=== PATIENT | male | born 1960 | race Caucasian/White ===

== ENCOUNTER 2022-06-12 11:00 | Outpatient (RCR) | payer OTHER, SELFPAY ==
[2022-05-26 10:11] LABS: Basophils Percent Auto 1.4 % (0.0-3.0); Eosinophils Percent Auto 8.5 % (0.0-7.0); Hematocrit 37.2 % (37.0-53.0); Hemoglobin* 12.9 gm/dL (13.5-17.5); Immature Granulocytes Abs Auto 0.01 K/uL (0.00-0.30); Mean Corpuscular HGB Conc 35 gm/dL (32-36); Mean Corpuscular Hemoglobin 37 pg (26-34); Mean Corpuscular Volume 107 fL (80-100); Monocytes Percent Auto 10.7 % (0.0-11.0); Platelet Count* 169 K/uL (140-440); RDW Coefficient of Variation % 12.6 % (11.5-15.5); Red Blood Count 3.48 m/uL (4.30-5.90); White Blood Count* 2.81 K/uL (4.50-11.00)
[2022-05-26 10:18] LABS: Slide Review Reflex No
[2022-05-26 10:24] LABS: Albumin* 4.2 g/dL (3.3-5.0); Chloride* 104 mmol/L (96-114); Potassium* 4.6 mmol/L (3.6-5.1); Sodium* 135 mmol/L (135-149)
[2022-05-26 10:26] LABS: Est. Creatinine Clearance* 80.53; Estimated Glomerular Filt Rate 84.57
[2022-05-26 10:27] LABS: Alanine Aminotransferase* 33 U/L (4-50); Alkaline Phosphatase* 78 U/L (40-150); Aspartate Amino Transferase* 36 U/L (12-35); Bilirubin Total* 0.8 mg/dL (0.1-1.5); Blood Urea Nitrogen* 11 mg/dL (7-30); Carbon Dioxide* 24 mmol/L (20-32); Glucose* 107 mg/dL (60-115); Total Protein* 6.5 g/dL (6.0-8.3)
[2022-05-26 10:28] LABS: Calcium* 8.8 mg/dL (8.4-10.6)
[2022-05-26 10:57] LABS: Lactate Dehydrogenase* 732 U/L (313-618)
--- NOTE | 2022-05-26 12:03 | ONC.NURNOTE ---
Here for Q 3mth lab draw reports slight and gradual improvement in skin rash no other concerns or changes taking 400mg Gleevac/day
[2022-06-05 15:48] LABS: BCRABL1 Intl Scale (Percent) 0 %
[2022-06-12 11:12] LABS: Lactate Dehydrogenase* 451 U/L (313-618)
--- NOTE | 2022-06-12 13:03 | ONC.NURNOTE ---
LDH results noted and called to Peter as in the normal range results to be reviewed by Dr Maciel this week during clinic
== END 2022-06-18 23:59 | disposition home or self-care (01) ==
LOC: CCIC 11:00
PROVIDERS: PCP Family Medicine; Visit Provider Internal Medicine Hematology & Oncology
DX: C92.10 Chronic myeloid leukemia, BCR/ABL-positive, not having achieved remission (principal)
CPT/HCPCS: 36415; 80053; 81206; 83615; 85025

== ENCOUNTER 2023-02-23 10:00 | Outpatient (RCR) | payer OTHER, SELFPAY ==
[2022-08-30 14:11] LABS: Basophils Absolute Auto 0.02 K/uL (0.00-0.30); Basophils Percent Auto 0.4 % (0.0-3.0); Eosinophils Absolute Auto 0.21 K/uL (0.00-0.50); Eosinophils Percent Auto 4.4 % (0.0-7.0); Hematocrit 36.7 % (37.0-53.0); Hemoglobin* 12.8 gm/dL (13.5-17.5); Lymphocytes Percent Auto 18.4 % (20-44); Mean Corpuscular HGB Conc 35 gm/dL (32-36); Mean Corpuscular Hemoglobin 38 pg (26-34); Mean Corpuscular Volume 108 fL (80-100); Monocytes Percent Auto 10.4 % (0.0-11.0); Neutrophils Absolute Auto 3.18 K/uL (1.7-7.0); Neutrophils Percent Auto 66.4 % (42.0-72.0); Platelet Count* 161 K/uL (140-440); RDW Coefficient of Variation % 12.7 % (11.5-15.5); Red Blood Count 3.39 m/uL (4.30-5.90); White Blood Count* 4.79 K/uL (4.50-11.00)
[2022-08-30 14:16] LABS: Slide Review Reflex No
[2022-08-30 14:27] LABS: Albumin* 4.5 g/dL (3.3-5.0); Chloride* 101 mmol/L (96-114); Sodium* 134 mmol/L (135-149)
[2022-08-30 14:28] LABS: Potassium* 4.5 mmol/L (3.6-5.1)
[2022-08-30 14:30] LABS: Alkaline Phosphatase* 80 U/L (40-150); Aspartate Amino Transferase* 40 U/L (12-35); Bilirubin Total* 1.2 mg/dL (0.1-1.5); Blood Urea Nitrogen* 14 mg/dL (7-30); Carbon Dioxide* 25 mmol/L (20-32); Creatinine* 1.3 mg/dL (0.5-1.5); Estimated Glomerular Filt Rate 62 ml/min; Lactate Dehydrogenase* 506 U/L (313-618); Total Protein* 7.2 g/dL (6.0-8.3)
[2022-08-30 14:31] LABS: Alanine Aminotransferase* 34 U/L (4-50); Calcium* 9.8 mg/dL (8.4-10.6); Glucose* 97 mg/dL (60-115)
--- NOTE | 2022-09-06 10:31 | ONC.NURNOTE ---
All labs called to Peter BCR/ABL noted at 0.00 reviewed next appt schedule- [place] leaving for [place] 11[place] agreed to get next lab and provider appt prior to leaving which will be lab at 2 mths instead of 3 mths
[2022-10-30 11:15] LABS: Basophils Percent Auto 0.8 % (0.0-3.0); Eosinophils Percent Auto 5.2 % (0.0-7.0); Hematocrit 37.8 % (37.0-53.0); Immature Granulocytes Pct Auto 0.3 %; Lymphocytes Percent Auto 25.2 % (20-44); Mean Corpuscular HGB Conc 34 gm/dL (32-36); Mean Corpuscular Hemoglobin 37 pg (26-34); Mean Corpuscular Volume 107 fL (80-100); Monocytes Percent Auto 12.9 % (0.0-11.0); Neutrophils Percent Auto 55.6 % (42.0-72.0); Platelet Count* 146 K/uL (140-440); RDW Coefficient of Variation % 12.6 % (11.5-15.5); Red Blood Count 3.52 m/uL (4.30-5.90); White Blood Count* 3.81 K/uL (4.50-11.00)
[2022-10-30 11:16] LABS: Slide Review Reflex No
[2022-10-30 11:30] LABS: Albumin* 4.5 g/dL (3.3-5.0); Chloride* 104 mmol/L (96-114); Potassium* 4.6 mmol/L (3.6-5.1); Sodium* 138 mmol/L (135-149)
[2022-10-30 11:32] LABS: Bilirubin Total* 0.7 mg/dL (0.1-1.5); Creatinine* 1.1 mg/dL (0.5-1.5); Estimated Glomerular Filt Rate 75 ml/min
[2022-10-30 11:33] LABS: Alanine Aminotransferase* 27 U/L (4-50); Alkaline Phosphatase* 66 U/L (40-150); Aspartate Amino Transferase* 29 U/L (12-35); Blood Urea Nitrogen* 13 mg/dL (7-30); Calcium* 9.3 mg/dL (8.4-10.6); Carbon Dioxide* 28 mmol/L (20-32); Glucose* 101 mg/dL (60-115)
[2022-11-16 12:31] LABS: QuantBCR-ABL Major p210 Source Not Detected
[2023-02-23 10:22] LABS: Basophils Percent Auto 0.7 % (0.0-3.0); Eosinophils Percent Auto 6.7 % (0.0-7.0); Hematocrit 36.8 % (37.0-53.0); Hemoglobin* 12.9 gm/dL (13.5-17.5); Lymphocytes Percent Auto 21.6 % (20-44); Mean Corpuscular HGB Conc 35 gm/dL (32-36); Mean Corpuscular Hemoglobin 37 pg (26-34); Mean Corpuscular Volume 106 fL (80-100); Monocytes Percent Auto 13.7 % (0.0-11.0); Neutrophils Percent Auto 57.3 % (42.0-72.0); Platelet Count* 152 K/uL (140-440); Red Blood Count 3.46 m/uL (4.30-5.90); Slide Review Reflex No; White Blood Count* 4.17 K/uL (4.50-11.00)
[2023-02-23 10:43] LABS: Albumin* 4.2 g/dL (3.3-5.0); Chloride* 101 mmol/L (96-114); Potassium* 4.8 mmol/L (3.6-5.1); Sodium* 131 mmol/L (135-149)
[2023-02-23 10:45] LABS: Creatinine* 0.9 mg/dL (0.5-1.5); Estimated Glomerular Filt Rate 96 ml/min
[2023-02-23 10:46] LABS: Alanine Aminotransferase* 40 U/L (4-50); Alkaline Phosphatase* 61 U/L (40-150); Aspartate Amino Transferase* 39 U/L (12-35); Bilirubin Total* 0.7 mg/dL (0.1-1.5); Blood Urea Nitrogen* 13 mg/dL (7-30); Calcium* 9.1 mg/dL (8.4-10.6); Carbon Dioxide* 27 mmol/L (20-32); Glucose* 107 mg/dL (60-115); Lactate Dehydrogenase* 193 U/L (120-246); Total Protein* 6.9 g/dL (6.0-8.3)
--- NOTE | 2023-02-23 14:34 | ONC.NURNOTE ---
Labs noted and called to Peter Sodium noted- messagel left on voice mail with instructions to add salt to his diet now BCR pending next lab/provider appts needed for 3 mths
[2023-02-27 17:40] LABS: QuantBCR-ABL Major p210 Source Not Provided
== END 2023-02-26 23:59 | disposition home or self-care (01) ==
LOC: CCIC 10:00
PROVIDERS: PCP Family Medicine; Referring Provider Family Medicine; Visit Provider Internal Medicine Hematology & Oncology
DX: C92.10 Chronic myeloid leukemia, BCR/ABL-positive, not having achieved remission (principal)
CPT/HCPCS: 36415; 80053; 81206; 83615; 85025; 99212; 99213

== ENCOUNTER 2023-11-09 09:00 | Outpatient (RCR) | payer OTHER, SELFPAY ==
--- NOTE | 2023-03-05 09:15 | ONC.NURNOTE ---
BCR/ABL results called to Peter as stable at 0% next appts in place Peter needs refill of Gleevac, with a 90 day supply discussed Na- Peter has been adding sodium to his diet, including salting foods and drinking V8 juice
--- NOTE | 2023-03-08 12:51 | ONC.NURNOTE ---
Dr Maciel requests that Peter follow up with PCP about hyponatremia this was communicated with Peter He needs to re-establish care with a PCP labs emailed to Peter at [email or web address]
--- NOTE | 2023-04-30 13:48 | ONC.NURNOTE ---
Patient left a message to change appointment with Dr. Maciel from May 31 to May 28 or . Called patient back and left a message that Dr. Maciel is on Vacation on May 28 and but there was a virtual appointment on June 05 at 1330. Left a message for patient to call us back if he wants us to make that change.
[2023-05-15 09:13] LABS: Basophils Percent Auto 0.8 % (0.0-3.0); Eosinophils Percent Auto 5.4 % (0.0-7.0); Hematocrit 37.7 % (37.0-53.0); Lymphocytes Percent Auto 18.9 % (20-44); Mean Corpuscular HGB Conc 35 gm/dL (32-36); Mean Corpuscular Hemoglobin 37 pg (26-34); Mean Corpuscular Volume 108 fL (80-100); Monocytes Percent Auto 12.8 % (0.0-11.0); Neutrophils Percent Auto 62.1 % (42.0-72.0); Platelet Count* 154 K/uL (140-440); RDW Coefficient of Variation % 12.6 % (11.5-15.5); White Blood Count* 3.91 K/uL (4.50-11.00)
[2023-05-15 09:14] LABS: Slide Review Reflex No
[2023-05-15 09:27] LABS: Albumin* 4.5 g/dL (3.3-5.0); Chloride* 99 mmol/L (96-114)
[2023-05-15 09:28] LABS: Potassium* 4.5 mmol/L (3.6-5.1); Sodium* 135 mmol/L (135-149)
[2023-05-15 09:30] LABS: Alkaline Phosphatase* 72 U/L (40-150); Aspartate Amino Transferase* 49 U/L (12-35); Bilirubin Total* 1.3 mg/dL (0.1-1.5); Blood Urea Nitrogen* 11 mg/dL (7-30); Carbon Dioxide* 28 mmol/L (20-32); Creatinine* 1.2 mg/dL (0.5-1.5); Estimated Glomerular Filt Rate 68 ml/min; Glucose* 109 mg/dL (60-115); Lactate Dehydrogenase* 216 U/L (120-246); Total Protein* 7.3 g/dL (6.0-8.3)
[2023-05-15 09:31] LABS: Alanine Aminotransferase* 40 U/L (4-50); Calcium* 9.7 mg/dL (8.4-10.6)
--- NOTE | 2023-05-17 10:55 | ONC.NURNOTE ---
Lab results called to Peter RTC in 2 weeks noted creat/AST/Bili
[2023-05-23 17:20] LABS: QuantBCR-ABL Major p210 Result Not Detected; QuantBCR-ABL Major p210 Source Whole Blood
[2023-08-15 09:31] LABS: Basophils Percent Auto 1.1 % (0.0-3.0); Eosinophils Percent Auto 6.9 % (0.0-7.0); Immature Granulocytes Pct Auto 0.3 %; Lymphocytes Percent Auto 22.9 % (20-44); Mean Corpuscular HGB Conc 35 gm/dL (32-36); Mean Corpuscular Hemoglobin 37 pg (26-34); Mean Corpuscular Volume 106 fL (80-100); Monocytes Percent Auto 13.6 % (0.0-11.0); Neutrophils Percent Auto 55.2 % (42.0-72.0); Platelet Count* 182 K/uL (140-440); RDW Coefficient of Variation % 12.7 % (11.5-15.5); Red Blood Count 3.48 m/uL (4.30-5.90); White Blood Count* 3.76 K/uL (4.50-11.00)
[2023-08-15 09:33] LABS: Slide Review Reflex No
[2023-08-15 09:48] LABS: Chloride* 103 mmol/L (96-114)
[2023-08-15 09:49] LABS: Albumin* 4.4 g/dL (3.3-5.0); Potassium* 4.8 mmol/L (3.6-5.1); Sodium* 137 mmol/L (135-149)
[2023-08-15 09:51] LABS: Estimated Glomerular Filt Rate 84 ml/min
[2023-08-15 09:52] LABS: Alanine Aminotransferase* 38 U/L (4-50); Alkaline Phosphatase* 60 U/L (40-150); Anion Gap 6 mEq/L (7-15); Aspartate Amino Transferase* 38 U/L (12-35); Bilirubin Total* 0.8 mg/dL (0.1-1.5); Blood Urea Nitrogen* 13 mg/dL (7-30); Calcium* 9.9 mg/dL (8.4-10.6); Carbon Dioxide* 28 mmol/L (20-32); Glucose* 110 mg/dL (60-115); Lactate Dehydrogenase* 200 U/L (120-246); Total Protein* 7.3 g/dL (6.0-8.3)
--- NOTE | 2023-10-29 15:52 | ONC.NURNOTE ---
Peter called stating he needs his rx for Imatinid 400mg called in to his pharmacy. Peter states he has a 2 week supply left. Note left for .
[2023-11-09 09:30] LABS: Hematocrit 38.1 % (37.0-53.0); Mean Corpuscular HGB Conc 34 gm/dL (32-36); Mean Corpuscular Hemoglobin 37 pg (26-34); Mean Corpuscular Volume 107 fL (80-100); Platelet Count* 159 K/uL (140-440); RDW Coefficient of Variation % 12.5 % (11.5-15.5); Red Blood Count 3.56 m/uL (4.30-5.90); White Blood Count* 3.46 K/uL (4.50-11.00)
[2023-11-09 09:44] LABS: Slide Review Reflex No
[2023-11-09 09:57] LABS: Albumin* 4.3 g/dL (3.3-5.0); Chloride* 101 mmol/L (96-114); Potassium* 4.3 mmol/L (3.6-5.1); Sodium* 134 mmol/L (135-149)
[2023-11-09 09:59] LABS: Anion Gap 8 mEq/L (7-15); Bilirubin Total* 0.9 mg/dL (0.1-1.5); Carbon Dioxide* 25 mmol/L (20-32); Estimated Glomerular Filt Rate 84 ml/min
[2023-11-09 10:00] LABS: Alanine Aminotransferase* 36 U/L (4-50); Alkaline Phosphatase* 63 U/L (40-150); Aspartate Amino Transferase* 29 U/L (12-35); Blood Urea Nitrogen* 13 mg/dL (7-30); Calcium* 9.1 mg/dL (8.4-10.6); Glucose* 131 mg/dL (60-115); Lactate Dehydrogenase* 189 U/L (120-246); Total Protein* 6.9 g/dL (6.0-8.3)
[2023-11-09 10:39] LABS: Monocytes Percent Auto 8.1 % (0.0-11.0); Neutrophils Percent Auto 58.6 % (42.0-72.0)
[2023-11-09 10:40] LABS: Basophils Percent Auto 0.9 % (0.0-3.0); Eosinophils Percent Auto 6.4 % (0.0-7.0)
[2023-11-14 13:43] LABS: QuantBCR-ABL Major p210 Result Not Detected; QuantBCR-ABL Major p210 Source Whole Blood
== END 2023-11-11 23:59 | disposition home or self-care (01) ==
LOC: CCIC 09:00
PROVIDERS: PCP Family Medicine; Referring Provider Family Medicine; Visit Provider Internal Medicine Hematology & Oncology
DX: C92.10 Chronic myeloid leukemia, BCR/ABL-positive, not having achieved remission (principal)
CPT/HCPCS: 36415; 80053; 81206; 83615; 85025; 99212; 99213; 99214

== ENCOUNTER 2024-08-19 09:00 | Outpatient (RCR) | payer MEDICARE, OTHER, SELFPAY ==
--- NOTE | 2023-11-15 16:36 | ONC.NURNOTE ---
results of BCR/ABL left on VM as 0.0
[2024-02-25 09:55] LABS: Basophils Percent Auto 0.5 % (0.0-3.0); Eosinophils Percent Auto 3.3 % (0.0-7.0); Hematocrit 36.4 % (37.0-53.0); Hemoglobin* 12.5 gm/dL (13.5-17.5); Lymphocytes Percent Auto 16.1 % (20-44); Mean Corpuscular HGB Conc 34 gm/dL (32-36); Mean Corpuscular Hemoglobin 37 pg (26-34); Mean Corpuscular Volume 108 fL (80-100); Neutrophils Percent Auto 69.1 % (42.0-72.0); Platelet Count* 145 K/uL (140-440); RDW Coefficient of Variation % 12.4 % (11.5-15.5); Red Blood Count 3.37 m/uL (4.30-5.90); White Blood Count* 3.91 K/uL (4.50-11.00)
[2024-02-25 09:58] LABS: Slide Review Reflex No
[2024-02-25 10:04] LABS: Albumin* 4.4 g/dL (3.3-5.0); Chloride* 100 mmol/L (96-114); Sodium* 134 mmol/L (135-149)
[2024-02-25 10:05] LABS: Potassium* 4.1 mmol/L (3.6-5.1)
[2024-02-25 10:07] LABS: Alanine Aminotransferase* 56 U/L (4-50); Alkaline Phosphatase* 59 U/L (40-150); Anion Gap 10 mEq/L (7-15); Aspartate Amino Transferase* 49 U/L (12-35); Bilirubin Total* 1.1 mg/dL (0.1-1.5); Blood Urea Nitrogen* 15 mg/dL (7-30); Carbon Dioxide* 24 mmol/L (20-32); Estimated Glomerular Filt Rate 84 ml/min; Glucose* 103 mg/dL (60-115)
[2024-02-25 10:08] LABS: Calcium* 9.6 mg/dL (8.4-10.6)
--- NOTE | 2024-03-05 10:41 | ONC.NURNOTE ---
Addendum entered by Khadra Patel RN 03/11/24 11:58: labs reviewed by Dr Maciel no changes in plan continue with Q 3 mth labs Original Note: Lab results called to Peter from Last week noted slight increase in AST/ALT- patient reports taking amoxicillin for sinus infection last week no other changes noted results to go to Dr Maciel when returns next week
[2024-05-13 10:08] LABS: Basophils Percent Auto 0.7 % (0.0-3.0); Eosinophils Percent Auto 4.4 % (0.0-7.0); Hematocrit 36.3 % (37.0-53.0); Hemoglobin* 12.3 gm/dL (13.5-17.5); Lymphocytes Percent Auto 24.9 % (20-44); Mean Corpuscular HGB Conc 34 gm/dL (32-36); Mean Corpuscular Hemoglobin 36 pg (26-34); Mean Corpuscular Volume 107 fL (80-100); Monocytes Percent Auto 14.5 % (0.0-11.0); Neutrophils Percent Auto 55.5 % (42.0-72.0); Platelet Count* 166 K/uL (140-440); RDW Coefficient of Variation % 12.8 % (11.5-15.5); White Blood Count* 2.97 K/uL (4.50-11.00)
[2024-05-13 10:10] LABS: Slide Review Reflex No
[2024-05-13 10:28] LABS: Albumin* 4.6 g/dL (3.3-5.0); Chloride* 100 mmol/L (96-114); Potassium* 5.2 mmol/L (3.6-5.1); Sodium* 134 mmol/L (135-149)
[2024-05-13 10:30] LABS: Anion Gap 6 mEq/L (7-15); Aspartate Amino Transferase* 41 U/L (12-35); Bilirubin Total* 0.9 mg/dL (0.1-1.5); Carbon Dioxide* 28 mmol/L (20-32); Estimated Glomerular Filt Rate 84 ml/min
[2024-05-13 10:31] LABS: Alanine Aminotransferase* 39 U/L (4-50); Alkaline Phosphatase* 66 U/L (40-150); Blood Urea Nitrogen* 15 mg/dL (7-30); Calcium* 9.7 mg/dL (8.4-10.6); Glucose* 112 mg/dL (60-115); Lactate Dehydrogenase* 174 U/L (120-246); Total Protein* 7.1 g/dL (6.0-8.3)
--- NOTE | 2024-05-14 14:21 | ONC.NURNOTE ---
yesterday- late entry patient was called with lab results noted increase in K- discussed foods higher in potassium to moderate intake noted Na- which is often low- patient states he tries to add additional salt to his food noted WBC decrease- -still within parameters to continue with imitanib has a follow up appt in mid May
[2024-05-20 23:11] LABS: QuantBCR-ABL Major p210 Result Not Detected; QuantBCR-ABL Major p210 Source Whole Blood
[2024-08-06 09:27] LABS: Albumin* 4.5 g/dL (3.3-5.0); Chloride* 100 mmol/L (96-114); Potassium* 4.6 mmol/L (3.6-5.1); Sodium* 135 mmol/L (135-149)
[2024-08-06 09:29] LABS: Aspartate Amino Transferase* 33 U/L (12-35); Basophils Percent Auto 1.6 % (0.0-3.0); Bilirubin Total* 0.7 mg/dL (0.1-1.5); Creatinine* 1.1 mg/dL (0.5-1.5); Eosinophils Percent Auto 8.1 % (0.0-7.0); Estimated Glomerular Filt Rate 75 ml/min; Hematocrit 38.1 % (37.0-53.0); Lymphocytes Percent Auto 26.8 % (20-44); Mean Corpuscular HGB Conc 34 gm/dL (32-36); Mean Corpuscular Hemoglobin 36 pg (26-34); Mean Corpuscular Volume 104 fL (80-100); Neutrophils Percent Auto 48.5 % (42.0-72.0); Platelet Count* 171 K/uL (140-440); RDW Coefficient of Variation % 12.3 % (11.5-15.5); Red Blood Count 3.66 m/uL (4.30-5.90); White Blood Count* 3.21 K/uL (4.50-11.00)
[2024-08-06 09:30] LABS: Alanine Aminotransferase* 37 U/L (4-50); Alkaline Phosphatase* 57 U/L (40-150); Anion Gap 8 mEq/L (7-15); Blood Urea Nitrogen* 15 mg/dL (7-30); Carbon Dioxide* 27 mmol/L (20-32); Glucose* 102 mg/dL (60-115); Lactate Dehydrogenase* 174 U/L (120-246); Total Protein* 7.2 g/dL (6.0-8.3)
[2024-08-06 09:31] LABS: Calcium* 9.4 mg/dL (8.4-10.6)
[2024-08-06 09:36] LABS: Slide Review Reflex No
--- NOTE | 2024-08-06 11:04 | ONC.NURNOTE ---
Here for lab draw- patient reports taking imatinib every other day since his last appt with Dr Maciel
--- NOTE | 2024-08-06 13:44 | PC.NURSE ---
Called pt with lab results from today. Pt reviewing them online as well. Pt will see Dr. Maciel on 08/19/2024 to discuss in further detail.
[2024-08-11 22:47] LABS: QuantBCR-ABL Major p210 Result Not Detected; QuantBCR-ABL Major p210 Source Whole Blood
== END 2024-08-23 23:59 | disposition home or self-care (01) ==
LOC: CCIC 09:00
PROVIDERS: Clinical Nurse Specialist; PCP Family Medicine; Referring Provider Family Medicine; Visit Provider Internal Medicine Hematology & Oncology
DX: C92.10 Chronic myeloid leukemia, BCR/ABL-positive, not having achieved remission (principal); L81.8 Other specified disorders of pigmentation
CPT/HCPCS: 36415; 80053; 81206; 83615; 85025; 99214; 99215; G0463

== ENCOUNTER 2025-03-02 10:30 | Outpatient (RCR) | payer MEDICARE, OTHER, SELFPAY ==
[2024-11-07 09:30] LABS: Eosinophils Percent Auto 4.8 % (0.0-7.0); Hemoglobin* 13.6 gm/dL (13.5-17.5); Immature Granulocytes Pct Auto 0.3 %; Lymphocytes Percent Auto 21.9 % (20-44); Mean Corpuscular HGB Conc 34 gm/dL (32-36); Mean Corpuscular Hemoglobin 35 pg (26-34); Mean Corpuscular Volume 103 fL (80-100); Monocytes Percent Auto 12.2 % (0.0-11.0); Neutrophils Percent Auto 59.8 % (42.0-72.0); Platelet Count* 172 K/uL (140-440); RDW Coefficient of Variation % 12.5 % (11.5-15.5); Red Blood Count* 3.89 m/uL (4.30-5.90); White Blood Count* 3.92 K/uL (4.50-11.00)
[2024-11-07 09:36] LABS: Slide Review Reflex No
[2024-11-07 09:49] LABS: Albumin* 4.5 g/dL (3.3-5.0); Chloride* 104 mmol/L (96-114); Sodium* 136 mmol/L (135-149)
[2024-11-07 09:50] LABS: Potassium* 4.8 mmol/L (3.6-5.1)
[2024-11-07 09:52] LABS: Alkaline Phosphatase* 59 U/L (40-150); Anion Gap 6 mEq/L (7-15); Aspartate Amino Transferase* 29 U/L (12-35); Bilirubin Total* 0.6 mg/dL (0.1-1.5); Blood Urea Nitrogen* 17 mg/dL (7-30); Carbon Dioxide* 26 mmol/L (20-32); Creatinine* 0.9 mg/dL (0.5-1.5); Estimated Glomerular Filt Rate 95 ml/min; Total Protein* 7.2 g/dL (6.0-8.3)
[2024-11-07 09:53] LABS: Alanine Aminotransferase* 36 U/L (4-50); Calcium* 9.7 mg/dL (8.4-10.6); Glucose* 117 mg/dL (60-115)
[2024-11-14 12:36] LABS: QuantBCR-ABL Major p210 Result Not Detected; QuantBCR-ABL Major p210 Source Whole Blood
--- NOTE | 2024-11-17 10:48 | ONC.NURNOTE ---
message left on VM with BCR/ABL results next appts due in January- need to be scheduled
[2025-03-02 10:23] LABS: Basophils Percent Auto 0.9 % (0.0-3.0); Eosinophils Percent Auto 5.1 % (0.0-7.0); Hematocrit* 40.2 % (37.0-53.0); Hemoglobin* 13.8 gm/dL (13.5-17.5); Immature Granulocytes Pct Auto 0.3 %; Lymphocytes Percent Auto 24.2 % (20-44); Mean Corpuscular HGB Conc 34 gm/dL (32-36); Mean Corpuscular Hemoglobin 35 pg (26-34); Mean Corpuscular Volume 103 fL (80-100); Monocytes Percent Auto 17.3 % (0.0-11.0); Neutrophils Percent Auto 52.2 % (42.0-72.0); Platelet Count* 185 K/uL (140-440); RDW Coefficient of Variation % 12.6 % (11.5-15.5); Red Blood Count* 3.92 m/uL (4.30-5.90); White Blood Count* 3.35 K/uL (4.50-11.00)
[2025-03-02 10:25] LABS: Slide Review Reflex No
[2025-03-02 10:40] LABS: Albumin* 4.8 g/dL (3.3-5.0); Chloride* 98 mmol/L (96-114); Potassium* 4.9 mmol/L (3.6-5.1); Sodium* 132 mmol/L (135-149)
[2025-03-02 10:43] LABS: Alanine Aminotransferase* 41 U/L (4-50); Alkaline Phosphatase* 60 U/L (40-150); Anion Gap 7 mEq/L (7-15); Aspartate Amino Transferase* 38 U/L (12-35); Bilirubin Total* 0.9 mg/dL (0.1-1.5); Blood Urea Nitrogen* 17 mg/dL (7-30); Calcium* 9.7 mg/dL (8.4-10.6); Carbon Dioxide* 27 mmol/L (20-32); Creatinine* 1.1 mg/dL (0.5-1.5); Estimated Glomerular Filt Rate 75 ml/min; Glucose* 106 mg/dL (60-115); Total Protein* 7.6 g/dL (6.0-8.3)
[2025-03-05 13:17] LABS: QuantBCR-ABL Major p210 Result Not Detected; QuantBCR-ABL Major p210 Source Whole Blood
--- NOTE | 2025-03-09 09:39 | ONC.NURNOTE ---
BCR/Abl called to Peter He will call back to set up May's appt for lab
== END 2025-05-06 23:59 | disposition home or self-care (01) ==
LOC: CCIC 10:30
PROVIDERS: PCP Family Medicine; Referring Provider Family Medicine; Visit Provider Internal Medicine Hematology & Oncology
DX: C92.10 Chronic myeloid leukemia, BCR/ABL-positive, not having achieved remission (principal)
CPT/HCPCS: 36415; 80053; 81206; 85025

== ENCOUNTER 2025-11-10 09:30 | Outpatient (RCR) | payer MEDICARE, OTHER, SELFPAY ==
[2025-05-18 09:36] LABS: Hematocrit* 39.4 % (37.0-53.0); Hemoglobin* 13.2 gm/dL (13.5-17.5); Immature Granulocytes Pct Auto 0.9 %; Mean Corpuscular HGB Conc 34 gm/dL (32-36); Mean Corpuscular Hemoglobin 34 pg (26-34); Mean Corpuscular Volume 102 fL (80-100); RDW Coefficient of Variation % 12.8 % (11.5-15.5); Red Blood Count* 3.88 m/uL (4.30-5.90); White Blood Count* 3.28 K/uL (4.50-11.00)
[2025-05-18 09:39] LABS: Immature Granulocytes Abs Auto 0.00 K/uL (0.00-0.30); Lymphocytes Absolute Auto 0.90 K/uL (0.90-2.90); Slide Review Reflex No
[2025-05-18 09:57] LABS: Albumin* 4.7 g/dL (3.3-5.0); Chloride* 100 mmol/L (96-114)
[2025-05-18 09:58] LABS: Potassium* 4.9 mmol/L (3.6-5.1); Sodium* 137 mmol/L (135-149)
[2025-05-18 10:00] LABS: Alanine Aminotransferase* 42 U/L (4-50); Anion Gap 11 mEq/L (7-15); Aspartate Amino Transferase* 40 U/L (12-35); Blood Urea Nitrogen* 13 mg/dL (7-30); Carbon Dioxide* 26 mmol/L (20-32); Creatinine* 1.0 mg/dL (0.5-1.5); Estimated Glomerular Filt Rate 83 ml/min
[2025-05-18 10:01] LABS: Alkaline Phosphatase* 67 U/L (40-150); Bilirubin Total* 0.6 mg/dL (0.1-1.5); Calcium* 9.7 mg/dL (8.4-10.6); Glucose* 96 mg/dL (60-115); Total Protein* 7.6 g/dL (6.0-8.3)
[2025-05-21 14:11] LABS: QuantBCR-ABL Major p210 Result Low Positive; QuantBCR-ABL Major p210 Source Whole Blood
--- NOTE | 2025-05-25 09:40 | ONC.NURNOTE ---
Lab results noted message left on VM to call for results needed are Sept appts
[2025-08-07 09:28] LABS: Hematocrit* 38.0 % (37.0-53.0); Hemoglobin* 13.2 gm/dL (13.5-17.5); Immature Granulocytes Abs Auto 0.00 K/uL (0.00-0.30); Immature Granulocytes Pct Auto 0.0 %; Mean Corpuscular HGB Conc 35 gm/dL (32-36); Mean Corpuscular Hemoglobin 35 pg (26-34); Mean Corpuscular Volume 100 fL (80-100); RDW Coefficient of Variation % 12.7 % (11.5-15.5); Red Blood Count* 3.80 m/uL (4.30-5.90); White Blood Count* 2.70 K/uL (4.50-11.00)
[2025-08-07 09:29] LABS: Lymphocytes Absolute Auto 0.70 K/uL (0.90-2.90); Slide Review Reflex No
[2025-08-07 09:53] LABS: Albumin* 4.5 g/dL (3.3-5.0); Chloride* 99 mmol/L (96-114); Potassium* 5.2 mmol/L (3.6-5.1); Sodium* 132 mmol/L (135-149)
[2025-08-07 09:56] LABS: Alanine Aminotransferase* 41 U/L (4-50); Alkaline Phosphatase* 66 U/L (40-150); Anion Gap 5 mEq/L (7-15); Aspartate Amino Transferase* 47 U/L (12-35); Bilirubin Total* 0.8 mg/dL (0.1-1.5); Blood Urea Nitrogen* 13 mg/dL (7-30); Carbon Dioxide* 28 mmol/L (20-32); Creatinine* 1.0 mg/dL (0.5-1.5); Estimated Glomerular Filt Rate 83 ml/min; Total Protein* 7.4 g/dL (6.0-8.3)
[2025-08-07 09:57] LABS: Calcium* 9.7 mg/dL (8.4-10.6); Glucose* 103 mg/dL (60-115)
[2025-08-13 12:22] LABS: QuantBCR-ABL Major p210 Result Not Detected; QuantBCR-ABL Major p210 Source Not Provided; QuantBCR-ABLMajor p210 IS % 0.0000 %
--- NOTE | 2025-08-13 12:45 | ONC.NURNOTE ---
labs reviewed with Peter eat less K rich foods and salt his foods more to address Na and K lab results faxed to Dr Urrutia, patient was encouraged to follow up with PCP sees Dr Maciel in 2 weeks
[2025-11-10 09:47] LABS: Hematocrit* 39.0 % (37.0-53.0); Hemoglobin* 13.7 gm/dL (13.5-17.5); Immature Granulocytes Abs Auto 0.00 K/uL (0.00-0.30); Immature Granulocytes Pct Auto 0.0 %; Mean Corpuscular HGB Conc 35 gm/dL (32-36); Mean Corpuscular Hemoglobin 35 pg (26-34); Mean Corpuscular Volume 100 fL (80-100); RDW Coefficient of Variation % 12.8 % (11.5-15.5); Red Blood Count* 3.89 m/uL (4.30-5.90); White Blood Count* 3.72 K/uL (4.50-11.00)
[2025-11-10 09:54] LABS: Lymphocytes Absolute Auto 0.90 K/uL (0.90-2.90); Slide Review Reflex No
[2025-11-10 10:03] LABS: Albumin* 4.6 g/dL (3.3-5.0); Chloride* 98 mmol/L (96-114); Sodium* 131 mmol/L (135-149)
[2025-11-10 10:04] LABS: Potassium* 4.6 mmol/L (3.6-5.1)
[2025-11-10 10:06] LABS: Alanine Aminotransferase* 39 U/L (4-50); Alkaline Phosphatase* 66 U/L (40-150); Anion Gap 5 mEq/L (7-15); Aspartate Amino Transferase* 34 U/L (12-35); Bilirubin Total* 0.8 mg/dL (0.1-1.5); Blood Urea Nitrogen* 13 mg/dL (7-30); Calcium* 9.5 mg/dL (8.4-10.6); Carbon Dioxide* 28 mmol/L (20-32); Creatinine* 0.9 mg/dL (0.5-1.5); Est. Creatinine Clearance* 77.39; Estimated Glomerular Filt Rate 94 ml/min; Glucose* 108 mg/dL (60-115); Total Protein* 7.4 g/dL (6.0-8.3)
--- NOTE | 2025-11-10 11:21 | ONC.NURNOTE ---
Called pt and LM on primary number with lab results look good. Instructed pt to use Gleevec as directed and to add a little salt to his dietary intake. Invited a call back if questions arise. Pt is going to [place] tomorrow and will be back for his next lab appt on 03/08/2026. BCR ABL pending at this time.
[2025-11-16 14:08] LABS: QuantBCR-ABL Major p210 Result Not Detected; QuantBCR-ABL Major p210 Source Whole Blood; QuantBCR-ABLMajor p210 IS % 0.0000 %
== END 2025-11-14 23:59 | disposition home or self-care (01) ==
LOC: CCIC 09:30
PROVIDERS: PCP Family Medicine; Referring Provider Family Medicine; Visit Provider Internal Medicine Hematology & Oncology
DX: C92.10 Chronic myeloid leukemia, BCR/ABL-positive, not having achieved remission (principal)
CPT/HCPCS: 36415; 80053; 81206; 83615; 85025; 99213; 99214; G0463